=== PATIENT | male | born 1960 | race Caucasian/White ===

== ENCOUNTER 2020-08-18 08:55 | Outpatient (REF) | payer OTHER, SELFPAY ==
[2020-08-18 09:31] LABS: MANUAL DIFF FLAG NO
[2020-08-18 09:34] LABS: Basophils Percent Auto 0.4 % (0-2); Eosinophils Absolute Auto 0.1 X10*3/uL (0.0-0.4); Eosinophils Percent Auto 1.7 % (0-4); Hematocrit 44.5 % (42-52); Hemoglobin 15.5 g/dl (14.0-18.0); Imm Gran Abs Auto 0.02 X10*3/uL (0.00-0.03); Imm Gran Pct Auto 0.3 % (0.0-0.4); Lymphocytes Absolute Auto 2.7 X10*3/uL (1.2-4.9); Lymphocytes Percent Auto 34.9 % (20-40); Mean Corpuscular HGB Conc 34.8 g/dl (31.0-36.0); Mean Corpuscular Hemoglobin 31.4 pg (27.0-33.0); Mean Corpuscular Volume 90.3 fL (80-98); Mean Platelet Volume 12.3 fL (9.4-12.4); Monocytes Absolute Auto 0.6 X10*3/uL (0.1-1.2); Monocytes Percent Auto 7.5 % (2-11); Neutrophils Absolute Auto 4.2 X10*3/uL (2.0-8.3); Neutrophils Percent Auto 55.2 % (45-73); Platelet Count 201 X10*3/uL (160-400); Red Blood Count 4.93 X10*6/uL (4.60-5.80); Red Cell Distribution Width 12.6 % (11.0-16.0); White Blood Count 7.6 X10*3/uL (4.8-10.8)
[2020-08-18 09:59] LABS: Alanine Aminotransferase 53 U/L (0-40); Albumin Level 4.7 g/dL (3.5-5.0); Alkaline Phosphatase 83 U/L (39-117); Anion Gap 13 (12-20); Aspartate Amino Transferase 26 U/L (5-37); Bilirubin Total 0.9 mg/dL (0.0-1.0); Blood Urea Nitrogen 15 mg/dL (9-16); Calcium 9.7 mg/dL (8.4-10.2); Carbon Dioxide 28 mmol/L (22-29); Chloride 104 mmol/L (96-108); Cholesterol 187 mg/dL; Estimated Glomerular Filt Rate > 60; Glucose Fasting 108 mg/dL (60-99); HDL Cholesterol 27 mg/dL; LDL Cholesterol Calculated 127 mg/dl; Potassium 4.2 mmol/l (3.3-5.1); Sodium 141 mmol/L (135-145); Total Protein 7.6 g/dL (6.5-8.0); Triglycerides 167 mg/dL
== END 2020-08-18 08:56 | disposition home or self-care (01) ==
LOC: HO.LAB 08:55
PROVIDERS: PCP Physician Assistant; Visit Provider Physician Assistant
DX: I10 Essential (primary) hypertension (principal); E78.1 Pure hyperglyceridemia
CPT/HCPCS: 36415; 80053; 80061; 85025

== ENCOUNTER 2021-01-13 06:48 | Outpatient (REF) | payer OTHER, SELFPAY ==
[2021-01-13 07:20] LABS: Hemoglobin 15.1 g/dl (14.0-18.0); Mean Corpuscular HGB Conc 34.3 g/dl (31.0-36.0); Mean Corpuscular Hemoglobin 30.9 pg (27.0-33.0); Mean Platelet Volume 11.8 fL (9.4-12.4); Platelet Count 193 X10*3/uL (160-400); Red Blood Count 4.89 X10*6/uL (4.60-5.80); Red Cell Distribution Width 12.8 % (11.0-16.0); White Blood Count 7.4 X10*3/uL (4.8-10.8)
[2021-01-13 07:46] LABS: Alanine Aminotransferase 54 U/L (0-40); Albumin Level 4.6 g/dL (3.5-5.0); Alkaline Phosphatase 81 U/L (39-117); Anion Gap 11 (12-20); Aspartate Amino Transferase 25 U/L (5-37); Bilirubin Total 0.6 mg/dL (0.0-1.0); Blood Urea Nitrogen 19 mg/dL (9-16); Calcium 9.5 mg/dL (8.4-10.2); Carbon Dioxide 31 mmol/L (22-29); Chloride 103 mmol/L (96-108); Cholesterol 205 mg/dL; Estimated Average Glucose 128 mg/dL; Estimated Glomerular Filt Rate > 60; Glucose Fasting 140 mg/dL (60-99); HDL Cholesterol 27 mg/dL; Hemoglobin A1c % 6.1 %; LDL Cholesterol Calculated 131 mg/dl; Potassium 4.4 mmol/L (3.3-5.1); Sodium 141 mmol/L (135-145); Total Protein 7.6 g/dL (6.5-8.0); Triglycerides 236 mg/dL
[2021-01-13 08:10] LABS: Prostate Specific Antigen Scr 0.29 ng/mL (<0.05-4.0); TSH reflex Free T4 2.39 uIU/mL (0.32-4.0)
[2021-01-13 11:00] LABS: Creatinine Urine 217.67 mg/dL
[2021-01-21 08:57] LABS: Testosterone, Total 233 ng/dL (250-1100)
== END 2021-01-13 06:49 | disposition home or self-care (01) ==
LOC: HO.LAB 06:48
PROVIDERS: PCP Physician Assistant; Visit Provider Physician Assistant
DX: I10 Essential (primary) hypertension (principal); R68.82 Decreased libido; Z12.5 Encounter for screening for malignant neoplasm of prostate
CPT/HCPCS: 36415; 80053; 80061; 82043; 83036; 84153; 84402; 84403; 84443; 85027

== ENCOUNTER → 2021-04-22 07:17 | Outpatient (BNVA) | payer OTHER, SELFPAY | PROVIDERS: PCP Physician Assistant; Visit Provider Internal Medicine ==

== ENCOUNTER 2021-04-26 06:21 | Outpatient (REF) | payer OTHER, SELFPAY ==
[2021-04-26 07:35] LABS: Hematocrit 42.2 % (42-52); Hemoglobin 14.3 g/dl (14.0-18.0); Mean Corpuscular HGB Conc 33.9 g/dl (31.0-36.0); Mean Corpuscular Hemoglobin 30.8 pg (27.0-33.0); Mean Corpuscular Volume 90.8 fL (80-98); Mean Platelet Volume 12.2 fL (9.4-12.4); Platelet Count 188 X10*3/uL (160-400); Red Blood Count 4.65 X10*6/uL (4.60-5.80); Red Cell Distribution Width 12.8 % (11.0-16.0); White Blood Count 7.5 X10*3/uL (4.8-10.8)
[2021-04-26 07:48] LABS: Estimated Average Glucose 114 mg/dL; Hemoglobin A1c % 5.6 %
[2021-04-26 07:56] LABS: Alanine Aminotransferase 40 U/L (0-40); Albumin Level 4.5 g/dL (3.5-5.0); Alkaline Phosphatase 71 U/L (39-117); Anion Gap 15 (12-20); Aspartate Amino Transferase 18 U/L (5-37); Bilirubin Total 0.5 mg/dL (0.0-1.0); Blood Urea Nitrogen 16 mg/dL (9-16); Calcium 9.6 mg/dL (8.4-10.2); Carbon Dioxide 24 mmol/L (22-29); Chloride 105 mmol/L (96-108); Cholesterol 196 mg/dL; Estimated Glomerular Filt Rate > 60; Glucose Fasting 128 mg/dL (60-99); HDL Cholesterol 27 mg/dL; LDL Cholesterol Calculated 127 mg/dl; Sodium 140 mmol/L (135-145); Total Protein 7.2 g/dL (6.5-8.0); Triglycerides 213 mg/dL
[2021-04-26 08:05] LABS: Prostate Specific Antigen 0.33 ng/mL (<0.05-4.0)
[2021-04-26 08:08] LABS: TSH reflex Free T4 3.19 uIU/mL (0.32-4.0)
[2021-04-26 08:10] LABS: Creatinine Urine 152.49 mg/dL; Microalbum/Creatinine Ratio Ur 15.7 ug/mg cr
[2021-04-27 10:40] LABS: Sex Hormone Binding Globulin 28 nmol/L (22-77)
[2021-04-27 20:36] LABS: Follicle Stimulating Hormone 6.7 mIU/mL (1.6-8.0); Lutenizing Hormone 3.1 mIU/mL (1.6-15.2)
[2021-04-30 20:57] LABS: Testosterone, Free 47.2 pg/mL (35.0-155.0); Testosterone, Total 281 ng/dL (250-1100)
== END 2021-04-26 06:22 | disposition home or self-care (01) ==
LOC: HO.LAB 06:21
PROVIDERS: Absent Provider Physician Assistant; PCP Physician Assistant; Visit Provider Internal Medicine
DX: Z12.5 Encounter for screening for malignant neoplasm of prostate (principal); R68.82 Decreased libido; E11.9 Type 2 diabetes mellitus without complications; I10 Essential (primary) hypertension
CPT/HCPCS: 36415; 80053; 80061; 82043; 83001; 83002; 83036; 84146; 84153; 84270; 84402; 84403; 84443; 85027

== ENCOUNTER 2021-06-14 13:51 | Outpatient (REF) | payer OTHER, SELFPAY ==
--- NOTE | 2021-06-14 | PFT_ITS ---
INDICATION: Pulmonary hypertension. SPIROMETRY: The FEV1 to FVC 80% with an FEV1 of 2.45 L which is 89% predicted, an FVC of 4.29 L, which is 84% predicted. No significant response to bronchodilators noted. Maximum voluntary ventilation 90% predicted. LUNG VOLUMES: Total lung capacity 89% predicted with an expiratory reserve volume of 36% predicted secondary to an elevated BMI. DIFFUSION CAPACITY: DLCO of 56% predicted. COMPARISONS: None available. INTERPRETATION: No obstructive nor restrictive ventilatory defects identified. No significant response to bronchodilators noted. Normal maximum voluntary ventilation. Lung volumes are within normal limits. The patient's expiratory reserve volume is decreased secondary to an elevated BMI. There is also a disproportionate isolated moderate to severe diffusion impairment, which could be secondary to the underlying pulmonary vascular disease which is a pulmonary hypertension. Clinical correlation warranted. MD ZARINA De La Fuente/MOD[facility] / [id number]
== END 2021-06-14 13:52 | disposition home or self-care (01) ==
LOC: HO.RESP 13:51
PROVIDERS: PCP Physician Assistant; Visit Provider Physician Assistant
DX: A48.1 Legionnaires' disease (principal); I27.20 Pulmonary hypertension, unspecified
CPT/HCPCS: 94060; 94727; 94729

== ENCOUNTER 2021-06-29 07:30 | Outpatient (REF) | payer OTHER, SELFPAY ==
--- NOTE | ~2021-06-29 | XR_ITS ---
EXAMINATION: XR CHEST CLINICAL INFORMATION: Legionnaires' disease COMPARISON: None TECHNIQUE: 2 views of the chest were obtained. FINDINGS: The cardiac silhouette does not appear enlarged. The thoracic aorta is tortuous. Hilar and mediastinal contours are otherwise unremarkable. The lungs are clear. There is no pleural effusion or thorax. There is slight loss of height of a lower thoracic or upper lumbar vertebral body questionable for old mild compression fracture. Bony structures are otherwise unremarkable. XR/XR chest 2V IMPRESSION: No evidence for acute disease in the chest.
[2021-06-29 08:07] LABS: Hemoglobin 11.3 g/dl (14.0-18.0); Mean Corpuscular HGB Conc 34.2 g/dl (31.0-36.0); Mean Corpuscular Hemoglobin 30.5 pg (27.0-33.0); Mean Corpuscular Volume 89.2 fL (80.0-98.0); Mean Platelet Volume 11.6 fL (9.4-12.4); Platelet Count 196 X10*3/uL (160-400); Red Cell Distribution Width 13.3 % (11.0-16.0); White Blood Count 6.4 X10*3/uL (4.8-10.8)
[2021-06-29 08:39] LABS: Alanine Aminotransferase 19 U/L (0-40); Albumin Level 4.4 g/dL (3.5-5.0); Alkaline Phosphatase 79 U/L (39-117); Anion Gap 14 (12-20); Aspartate Amino Transferase 15 U/L (5-37); Bilirubin Total 0.6 mg/dL (0.0-1.0); Blood Urea Nitrogen 15 mg/dL (9-16); Calcium 9.4 mg/dL (8.4-10.2); Carbon Dioxide 25 mmol/L (22-29); Chloride 105 mmol/L (96-108); Cholesterol 203 mg/dL; Estimated Average Glucose 105 mg/dL; Estimated Glomerular Filt Rate > 60; Glucose Fasting 124 mg/dL (60-99); HDL Cholesterol 26 mg/dL; Hemoglobin A1c % 5.3 %; LDL Cholesterol Calculated 123 mg/dl; Potassium 4.1 mmol/L (3.3-5.1); Sodium 140 mmol/L (135-145); Total Protein 7.5 g/dL (6.5-8.0); Triglycerides 271 mg/dL
[2021-06-29 09:00] LABS: TSH reflex Free T4 2.76 uIU/mL (0.32-4.0)
== END 2021-06-29 07:31 | disposition home or self-care (01) ==
LOC: HO.XRAY 07:30
PROVIDERS: PCP Physician Assistant; Visit Provider Physician Assistant
DX: A48.1 Legionnaires' disease (principal); E11.9 Type 2 diabetes mellitus without complications; I10 Essential (primary) hypertension
CPT/HCPCS: 36415; 71046; 80053; 80061; 83036; 84443; 85027

== ENCOUNTER 2021-09-27 10:03 | Outpatient (REF) | payer OTHER, SELFPAY ==
[2021-09-27 12:06] LABS: Hematocrit 39.3 % (42.0-52.0); Hemoglobin 13.6 g/dl (14.0-18.0); Mean Corpuscular HGB Conc 34.6 g/dl (31.0-36.0); Mean Corpuscular Hemoglobin 30.2 pg (27.0-33.0); Mean Corpuscular Volume 87.1 fL (80.0-98.0); Mean Platelet Volume 12.4 fL (9.4-12.4); Platelet Count 178 X10*3/uL (160-400); Red Blood Count 4.51 X10*6/uL (4.60-5.80); Red Cell Distribution Width 12.6 % (11.0-16.0); White Blood Count 6.3 X10*3/uL (4.8-10.8)
[2021-09-27 12:14] LABS: Estimated Average Glucose 126 mg/dL; Hemoglobin A1C 148.5141 umol/L
[2021-09-27 12:33] LABS: Alanine Aminotransferase 22 U/L (0-40); Albumin Level 4.5 g/dL (3.5-5.0); Alkaline Phosphatase 79 U/L (39-117); Anion Gap 14 (12-20); Aspartate Amino Transferase 15 U/L (5-37); Bilirubin Total 0.7 mg/dL (0.0-1.0); Blood Urea Nitrogen 17 mg/dL (9-16); Calcium 9.6 mg/dL (8.4-10.2); Carbon Dioxide 25 mmol/L (22-29); Chloride 105 mmol/L (96-108); Cholesterol 192 mg/dL; Estimated Glomerular Filt Rate > 60; Glucose Fasting 93 mg/dL (60-99); HDL Cholesterol 25 mg/dL; LDL Cholesterol Calculated 127 mg/dl; Sodium 140 mmol/L (135-145); Total Protein 7.5 g/dL (6.5-8.0); Triglycerides 201 mg/dL
[2021-09-27 12:56] LABS: Prostate Specific Antigen Scr 0.39 ng/mL (<0.05-4.0)
[2021-09-27 13:18] LABS: Creatinine Urine 147.64 mg/dL; Microalbum/Creatinine Ratio Ur 17.6 ug/mg cr
== END 2021-09-27 10:04 | disposition home or self-care (01) ==
LOC: HO.LAB 10:03
PROVIDERS: PCP Physician Assistant; Visit Provider Physician Assistant
DX: E11.9 Type 2 diabetes mellitus without complications (principal); I27.20 Pulmonary hypertension, unspecified; F17.210 Nicotine dependence, cigarettes, uncomplicated; Z12.5 Encounter for screening for malignant neoplasm of prostate; Z79.899 Other long term (current) drug therapy
CPT/HCPCS: 36415; 80053; 80061; 82043; 83036; 84153; 84443; 85027; 94618

== ENCOUNTER 2022-01-25 09:16 | Outpatient (REF) | payer OTHER, SELFPAY ==
[2022-01-25 10:41] LABS: Hematocrit 41.1 % (42.0-52.0); Hemoglobin 14.2 g/dl (14.0-18.0); Mean Corpuscular HGB Conc 34.5 g/dl (31.0-36.0); Mean Corpuscular Hemoglobin 30.3 pg (27.0-33.0); Mean Corpuscular Volume 87.8 fL (80.0-98.0); Mean Platelet Volume 11.8 fL (9.4-12.4); Platelet Count 200 X10*3/uL (160-400); Red Blood Count 4.68 X10*6/uL (4.60-5.80); Red Cell Distribution Width 13.2 % (11.0-16.0); White Blood Count 7.5 X10*3/uL (4.8-10.8)
[2022-01-25 10:52] LABS: Estimated Average Glucose 123 mg/dL; Hemoglobin A1c % 5.9 %
[2022-01-25 12:01] LABS: Alanine Aminotransferase 26 U/L (0-40); Albumin Level 4.4 g/dL (3.5-5.0); Alkaline Phosphatase 86 U/L (39-117); Anion Gap 14 (12-20); Aspartate Amino Transferase 16 U/L (5-37); Bilirubin Total 0.7 mg/dL (0.0-1.0); Blood Urea Nitrogen 21 mg/dL (9-16); Calcium 9.8 mg/dL (8.4-10.2); Carbon Dioxide 24 mmol/L (22-29); Chloride 104 mmol/L (96-108); Cholesterol 178 mg/dL; Estimated Glomerular Filt Rate > 60; Glucose Fasting 95 mg/dL (60-99); HDL Cholesterol 25 mg/dL; LDL Cholesterol Calculated 118 mg/dl; Potassium 4.2 mmol/L (3.3-5.1); Sodium 138 mmol/L (135-145); Total Protein 7.5 g/dL (6.5-8.0); Triglycerides 179 mg/dL
== END 2022-01-25 09:17 | disposition home or self-care (01) ==
LOC: HO.LAB 09:16
PROVIDERS: PCP Physician Assistant; Visit Provider Physician Assistant
DX: E11.9 Type 2 diabetes mellitus without complications (principal); E78.9 Disorder of lipoprotein metabolism, unspecified; I10 Essential (primary) hypertension
CPT/HCPCS: 36415; 80053; 80061; 83036; 85027

== ENCOUNTER 2022-07-26 08:22 | Outpatient (REF) | payer OTHER, SELFPAY ==
[2022-07-26 09:21] LABS: Hematocrit 41.8 % (42.0-52.0); Hemoglobin 14.4 g/dl (14.0-18.0); Mean Corpuscular HGB Conc 34.4 g/dl (31.0-36.0); Mean Corpuscular Hemoglobin 30.7 pg (27.0-33.0); Mean Corpuscular Volume 89.1 fL (80.0-98.0); Mean Platelet Volume 12.3 fL (9.4-12.4); Platelet Count 201 X10*3/uL (160-400); Red Blood Count 4.69 X10*6/uL (4.60-5.80); Red Cell Distribution Width 12.7 % (11.0-16.0); White Blood Count 8.2 X10*3/uL (4.8-10.8)
[2022-07-26 09:31] LABS: Estimated Average Glucose 114 mg/dL; Hemoglobin A1c % 5.6 %
[2022-07-26 09:55] LABS: Alanine Aminotransferase 25 U/L (0-40); Albumin Level 4.7 g/dL (3.5-5.0); Alkaline Phosphatase 89 U/L (39-117); Anion Gap 15 (12-20); Aspartate Amino Transferase 17 U/L (5-37); Bilirubin Total 0.5 mg/dL (0.0-1.0); Blood Urea Nitrogen 16 mg/dL (9-16); Calcium 9.8 mg/dL (8.4-10.2); Carbon Dioxide 26 mmol/L (22-29); Chloride 104 mmol/L (96-108); Cholesterol 184 mg/dL; Estimated Glomerular Filt Rate > 60; Glucose Fasting 117 mg/dL (60-99); HDL Cholesterol 27 mg/dL; LDL Cholesterol Calculated 132 mg/dl; Potassium 4.2 mmol/L (3.3-5.1); Sodium 141 mmol/L (135-145); Total Protein 7.6 g/dL (6.5-8.0); Triglycerides 127 mg/dL
[2022-07-26 10:19] LABS: TSH reflex Free T4 2.55 uIU/mL (0.32-4.0)
== END 2022-07-26 08:23 | disposition home or self-care (01) ==
LOC: HO.LAB 08:22
PROVIDERS: PCP Physician Assistant; Visit Provider Physician Assistant
DX: E78.9 Disorder of lipoprotein metabolism, unspecified (principal); E11.9 Type 2 diabetes mellitus without complications; I10 Essential (primary) hypertension
CPT/HCPCS: 36415; 80053; 80061; 83036; 84443; 85027

== ENCOUNTER 2022-08-12 06:42 | Outpatient (REF) | payer OTHER, SELFPAY ==
[2022-08-14 00:29] LABS: Follicle Stimulating Hormone 7.3 mIU/mL (1.6-8.0); Lutenizing Hormone 4.5 mIU/mL (1.6-15.2)
[2022-08-18 22:53] LABS: Testosterone, Total 236 ng/dL (250-1100)
== END 2022-08-12 06:43 | disposition home or self-care (01) ==
LOC: HO.LAB 06:42
PROVIDERS: PCP Physician Assistant; Visit Provider Internal Medicine Endocrinology, Diabetes & Metabolism
DX: R79.89 Other specified abnormal findings of blood chemistry (principal)
CPT/HCPCS: 36415; 83001; 83002; 84402; 84403

== ENCOUNTER 2022-08-30 08:57 | Outpatient (REF) | payer OTHER, SELFPAY ==
--- NOTE | ~2022-08-30 | MR_ITS ---
EXAMINATION: MR BRAIN WITHOUT AND WITH CONTRAST CLINICAL INFORMATION: 61-year-old with low testosterone. Question pituitary lesion. Other specified abnormal findings of blood chemistry. COMPARISON: None TECHNIQUE: Multiplanar, multisequence MRI of the brain/pituitary gland was obtained before and after the intravenous administration of 5 mL Gadavist. FINDINGS: Brain Volume: Within normal limits within the limitations of qualitative assessment. Structural: Slight cerebellar tonsillar ectopia at the foramen magnum, consistent with a normal variant. Sella: Slightly heterogeneous enhancement noted involving the pituitary gland without a discrete focal lesion. There is absence of the posterior pituitary bright spot, which can be a normal variant. The height of the gland is not symmetric with the right side being larger than the left, which can be a normal variant as well. Both cavernous sinuses are noted to enhance. Normal signal voids are seen in the carotid siphons. No suprasellar or juxtasellar masses are identified. The infundibulum enhances normally and appears slightly deviated to the left. Given these findings, the possibility of a lesion on the right side of the gland is difficult to exclude but cannot be definitively visualized. Consider follow-up MRI of the sella without and with contrast in 6 months to reassess on a 3T MRI scanner. Brain and Meninges: DWI sequence demonstrates no restricted diffusion to suggest acute or subacute cerebral ischemia. Scattered small patchy and punctate foci of FLAIR/T2 signal hyperintensity are seen in the white matter of both cerebral hemispheres with no abnormal enhancement which are nonspecific findings but could reflect chronic ischemic microangiopathy. Incidental note is made of a 4 mm benign pineal cyst. Punctate T2 hyperintensities are seen in the kristy which are nonspecific but could also reflect chronic ischemic microangiopathy. There are also small minimally dilated perivascular spaces at the level of the basal ganglia and midbrain. No extra-axial fluid collections, significant space-occupying process or mass effect are identified. No definite pathologic intracranial enhancement. Ventricles and Subarachnoid Spaces: The ventricular system and subarachnoid spaces are within normal range; there is no hydrocephalus. Orbital Structures: The visualized orbital structures are grossly unremarkable within the limitations of the study. Vascular: Signal voids are noted in the visualized major intracranial vessels. Osseous Structures, Sinuses/Mastoids, Extracranial Soft Tissues: There are retained secretions in the mastoids bilaterally which are nonspecific findings. There is some mucosal thickening in the ethmoid and maxillary sinuses with nasal septal deviation to the right and retention cysts in both maxillary sinuses and within the pterygoid recess of the sphenoid sinus on the left. 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 There is a minimally prominent right lateral retropharyngeal lymph node of indeterminate significance. MR/MR head/brain wo/w con IMPRESSION: 1. Asymmetric appearance to the pituitary gland as described above which enhances heterogeneously without a discrete focal lesion but with slight infundibular deviation to the left. Difficult to exclude a lesion on the right side of the gland which cannot be definitively visualized on this study. There is also absence of the posterior pituitary bright spot which can be a normal variant. Given the above findings, a follow-up MRI of the sella without and with contrast is recommended in 6 months to reassess, preferably to be done on a 3T scanner. 2. Probable mild chronic ischemic microangiopathy in the white matter of both cerebral hemispheres and an incidental tiny benign pineal cyst. 3. Mildly prominent right lateral retropharyngeal lymph node noted on the DWI sequence. This can be followed up as well at the time of follow-up exam. 4. Paranasal sinus inflammatory changes, nonspecific bilateral mastoid effusions and a left-sided TMJ arthropathy.
[2022-08-30 11:46] LABS: Ferritin 131 ng/mL (20-250)
[2022-09-04 11:08] LABS: Testosterone, Free 39.7 pg/mL (35.0-155.0); Testosterone, Total 231 ng/dL (250-1100)
== END 2022-08-30 08:58 | disposition home or self-care (01) ==
LOC: HO.MRI 08:57
PROVIDERS: PCP Physician Assistant; Visit Provider Internal Medicine Endocrinology, Diabetes & Metabolism
DX: R79.89 Other specified abnormal findings of blood chemistry (principal); R68.82 Decreased libido; E29.1 Testicular hypofunction
CPT/HCPCS: 36415; 70553; 82728; 84402; 84403; A9585

== ENCOUNTER → 2022-09-01 09:07 | Outpatient (REF) | payer OTHER, SELFPAY | LOC: HO.SL 09:07 | PROVIDERS: PCP Physician Assistant; Visit Provider Physician Assistant | DX: G47.33 Obstructive sleep apnea (adult) (pediatric) (principal); I27.20 Pulmonary hypertension, unspecified | CPT/HCPCS: 95806 ==

== ENCOUNTER 2022-10-10 11:04 | Outpatient (REF) | payer OTHER, SELFPAY ==
[2022-10-10 16:12] LABS: Urine Cytology See Pathology rpt
== END 2022-10-10 11:05 | disposition home or self-care (01) ==
LOC: HO.LAB 11:04
PROVIDERS: PCP Physician Assistant; Visit Provider Nurse Practitioner Family
DX: E29.1 Testicular hypofunction (principal); N43.3 Hydrocele, unspecified; R79.89 Other specified abnormal findings of blood chemistry; R31.29 Other microscopic hematuria; Q55.29 Other congenital malformations of testis and scrotum; R53.83 Other fatigue; F17.210 Nicotine dependence, cigarettes, uncomplicated; Z79.899 Other long term (current) drug therapy
CPT/HCPCS: 88112

== ENCOUNTER 2022-10-10 12:10 | Outpatient (REF) | payer OTHER, SELFPAY ==
[2022-10-10 13:37] LABS: Blood Urea Nitrogen 16 mg/dL (9-16); Estimated Glomerular Filt Rate > 60
== END 2022-10-10 12:11 | disposition home or self-care (01) ==
LOC: HO.10HDL 12:10
PROVIDERS: Visit Provider Nurse Practitioner Family
DX: R31.29 Other microscopic hematuria (principal); N43.3 Hydrocele, unspecified; N50.89 Other specified disorders of the male genital organs
CPT/HCPCS: 36415; 82565; 84520

== ENCOUNTER 2022-10-31 13:15 | Outpatient (REF) | payer OTHER, SELFPAY ==
--- NOTE | ~2022-10-31 | US_ITS ---
EXAMINATION: US SCROTUM CLINICAL INFORMATION: Hydrocele, unspecified. COMPARISON: Ultrasound scrotum 05/29/2017. TECHNIQUE: A sonogram of the scrotum was performed assessing whittaker-scale appearance and color Doppler flow. Spectral Doppler analysis of the arterial and venous flow were performed in the testes bilaterally. FINDINGS: RIGHT: Right testicle measures 4.4 x 3.7 x 4.4 cm, volume 36.6 mL. There is microlithiasis. No mass lesion is seen Spectral Doppler analysis of the arterial and venous flow is normal in the right testis. A 7 mm extratesticular calcifications (scrotal lela) is seen. Right epididymal head is normal in size. No right varicocele is seen. There is a large hydrocele, with fine septations. Right epididymal Doppler flow is normal. LEFT: Left testicle measures 3.7 x 2.8 x 3.9 cm, volume 21.3 mL. There is microlithiasis. No mass lesion is seen. Spectral Doppler analysis of the arterial and venous flow is normal in the left testis. Left epididymal head is normal in size. No left varicocele is seen. There is a small hydrocele. Left epididymal Doppler flow is normal. US/US scrotum IMPRESSION: 1. Testicular microlithiasis is present without intratesticular mass or other worrisome findings. In the absence of any other risk factors for testicular cancer (e.g., personal history of testicular cancer, a father or brother with testicular cancer, history of cryptorchidism or maldescent, testicular atrophy, or other risk factors), no further imaging or biochemical follow-up is necessary; all that is recommended is routine monthly testicular self-examination. However, if the patient has risk factors for testicular cancer, referral to a urologist for evaluation and determination of an optimal follow-up strategy is recommended. 2. There are bilateral hydroceles, right greater than left. 3. A 7 mm right extratesticular calcification is noted.
== END 2022-10-31 13:16 | disposition home or self-care (01) ==
LOC: HO.US 13:15
PROVIDERS: PCP Physician Assistant; Visit Provider Nurse Practitioner Family
DX: N43.3 Hydrocele, unspecified (principal); N50.89 Other specified disorders of the male genital organs
CPT/HCPCS: 76870

== ENCOUNTER 2022-11-04 08:34 | Outpatient (REF) | payer OTHER, SELFPAY ==
--- NOTE | ~2022-11-04 | CT_ITS ---
EXAMINATION: CT ABDOMEN AND PELVIS WITHOUT AND WITH CONTRAST CLINICAL INFORMATION: Microscopic hematuria. COMPARISON: None available. TECHNIQUE: Noncontrast CT of the abdomen and pelvis is performed followed by split bolus contrast-enhanced images using 85 mL Omnipaque 350 contrast.?Postcontrast imaging was performed during the combined nephrogram and excretion phase. Sagittal and coronal reformatted images were obtained on the technologist's workstation for both the precontrast and postcontrast phases. This CT examination was performed using dose optimization techniques as appropriate, variously including the following: *Automated exposure control *Adjustment of mA and/or kV according to patient size (this includes techniques or standardized protocols for targeted exams where dose is matched to indication/reason for exam; i.e. extremities or head) *Use of iterative reconstruction technique DLP: 1175 mGy-cm FINDINGS: LUNG BASES: The visualized lung bases are unremarkable. Mild coronary artery calcifications are present. LIVER, GALLBLADDER, AND BILIARY TREE: The liver is normal in size, shape, and attenuation. No focal hepatic lesion or biliary ductal dilatation is present. The gallbladder has been surgically removed. PANCREAS: Unremarkable. SPLEEN: Unremarkable. ADRENAL GLANDS: Unremarkable. KIDNEYS AND URETERS: The kidneys are normal in size, shape, and attenuation. There are bilateral renal calculi. 4 mm radiopaque calculus upper mid medial cortex right kidney without caliectasis. A 9 mm radiopaque calculus at the corticomedullary junction mid pole left kidney. No caliectasis or hydronephrosis is seen. There is bilateral perinephric stranding. Post contrast, there is no enhancing renal mass. There is a nonenhancing 1.3 cm lower pole left kidney cyst and a 7 mm mid pole right kidney cyst. There are smaller hypodensities in both kidneys. There is good opacification of the bilateral kidney pelves and ureters without any obstruction or filling defect. BLADDER: The bladder is unremarkable. No wall thickening or radiopaque calculi are seen. GASTROINTESTINAL TRACT: Scattered stool, gas and diverticula are seen throughout the colon without any evidence of fat stranding or mural thickening. The small bowel loops are normal caliber. The appendix is normal caliber. No inflammatory process is seen in the abdomen. There is no free fluid. ABDOMINAL WALL: Small umbilical hernia containing fat. LYMPH NODES: No abnormal-sized lymph nodes are seen. VASCULAR: There are atherosclerotic changes of the abdominal aorta. PELVIC VISCERA: Unremarkable. OSSEUS STRUCTURES: No aggressive lytic or sclerotic process is seen. CT/CT urogram IMPRESSION: Bilateral nonobstructive radiopaque renal calculi. No caliectasis or hydronephrosis is seen. Diffuse colonic diverticulosis without diverticulitis. Cholecystectomy.
[2022-11-04] MEDS: iohexoL 350 MG/ML 100 ML INFUS..BTL IV (09:33)
== END 2022-11-04 08:35 | disposition home or self-care (01) ==
LOC: HO.CT 08:34
PROVIDERS: PCP Physician Assistant; Visit Provider Nurse Practitioner Family
DX: R31.29 Other microscopic hematuria (principal)
CPT/HCPCS: 74178; Q9967